=== PATIENT | female | born 1995 | race African-American/Black ===

== ENCOUNTER 2022-08-22 11:24 | Emergency (ER) | payer MEDICAID ==
[~2022-08-22] VITALS: Ht 157.5 cm; Wt 60.0 kg
[2022-08-22] MEDS ORDERED: HYDROCODONE/ACETAMINOPHEN 5/325MG TABLET PO ONE (13:30)
[2022-08-22] MEDS ORDERED: IBUPROFEN 600MG TABLET PO ONE (13:30)
[2022-08-22] MEDS ORDERED: CYCL5TAB MT (15:47)
[2022-08-22] MEDS ORDERED: IBUP-2030 MT (15:47)
[2022-08-22 16:09] VITALS: BP 128/86
== END 2022-08-22 16:11 | disposition home or self-care (01) ==
LOC: ER 11:24
DX: S16.1XXA Strain of muscle, fascia and tendon at neck level, initial encounter (principal); S39.012A Strain of muscle, fascia and tendon of lower back, initial encounter; V49.9XXA Car occupant (driver) (passenger) injured in unspecified traffic accident, initial encounter; Y93.89 Activity, other specified; Y92.89 Other specified places as the place of occurrence of the external cause; Y99.8 Other external cause status
CPT/HCPCS: 72040; 72100; 99284